=== PATIENT | male | born 2000 | race Caucasian/White ===

== ENCOUNTER 2023-02-10 13:11 | Outpatient (CLI) | payer BC, SELFPAY ==
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
--- NOTE | ~2023-02-10 | US_ITS ---
EXAMINATION: US renal BI DATE: 02/10/2023 14:23 INDICATION: Hematuria TECHNIQUE: Multiple grayscale and Doppler ultrasound images of the kidneys were obtained. COMPARISON: None. FINDINGS: The right kidney measures 11.9 x 5.5 x 6.1 cm. The left kidney measures 11.9 x 5.3 x 5.8 cm . The kidneys demonstrate normal parenchymal echogenicity. There is no hydronephrosis. The bladder is normal. IMPRESSION: 1. Normal kidneys without hydronephrosis. Reviewed, dictated and finalized at location F.
== END 2023-02-10 13:12 | disposition home or self-care (01) ==
LOC: ANHIMG 13:13
PROVIDERS: Visit Provider Urology
DX: R31.9 Hematuria, unspecified (principal); N50.82 Scrotal pain
CPT/HCPCS: 76775; 76870; 93976